=== PATIENT | female | born 1955 | race Caucasian/White ===

== ENCOUNTER 2016-09-11 07:25 | Day surgery (SDC) | payer MEDICAID, SELFPAY ==
[~2016-09-11 07:25] MED LIST: Midazolam 1 MG/ML 2 ML SDV ONE; Sodium Chloride 0.9% 10 ML Syringe FLUSH PRN; fentaNYL 100 MCG/2 ML SDV ONE
[2016-09-11] MEDS ORDERED: Dextrose 5%-0.45% NaCl 1,000 ML IV SCH (07:30)
[2016-09-11] MEDS ORDERED: fentaNYL 100 MCG/2 ML SDV IV ONE ×3 (08:44→14:48)
[2016-09-11] MEDS ORDERED: Midazolam 1 MG/ML 2 ML SDV IV ONE ×5 (08:45→14:48)
--- NOTE | 2016-09-11 09:40 | OR ---
DATE: 09/11/2016 PROCEDURE: Total colonoscopy and multiple pinch biopsies. INSTRUMENT USED: PCF-H180AL Olympus video colonoscope. PREMEDICATIONS: Fentanyl 100 mcg intravenous, Versed 3 mg intravenous. The procedure was done under pulse oximetry, BP recording, and cardiac tech. INDICATION: The patient with unexplained chronic diarrhea, not responsive to medical measures. Colonoscopic examination is done for detection of any polypoid lesions and removal, biopsies to be obtained for microscopic colitis, endoscopic hemostasis therapy if needed. DESCRIPTION OF PROCEDURE: Initial rectal exam showed perianal diffuse erythema. Rigid anoscopy was unremarkable. The colonoscope was passed with ease. Few scattered diverticula were noted in the colon more so in the distal left colon along with deformity. The scope was passed with ease up to the ileocecal area, photographs were taken of the normal-appearing cecum, identified by landmarks of appendiceal orifice and thin-lipped ileocecal folds. No bleeding was noted from any of the visualized areas at the commencement of the examination. No stricture. No vascular ectasia. No large isolated ulcerations seen. No evidence of diffuse inflammatory bowel disease in the form of friability, contact bleeding, or ulcerations. No polyp or tumor mass identified. There was quite a bit of fecal material that had to be aspirated. Probing the proximal sides of folds and flexures, using adequate distention and clearing up the stool material, withdrawal of the scope was made. Multiple pinch biopsies were taken from the normal-appearing mucosa of the midtransverse colon, middescending colon, and rectosigmoid, and sent for any histopathologic evidence of microscopic colitis. No bleeding was noted from any of the visualized areas at the completion of examination. IMPRESSION: Diverticulosis. The patient tolerated the procedure well. [facility] /[id number]
[2016-09-11 10:53] VITALS: BP 106/92
== END 2016-09-11 11:00 | disposition home or self-care (01) ==
LOC: DL.ENDO 07:25
PROVIDERS: ATTEND Internal Medicine Gastroenterology
DX: K57.30 Diverticulosis of large intestine without perforation or abscess without bleeding (principal); E66.9 Obesity, unspecified; I10 Essential (primary) hypertension; E78.5 Hyperlipidemia, unspecified; Z98.890 Other specified postprocedural states; Z88.1 Allergy status to other antibiotic agents; Z79.82 Long term (current) use of aspirin
CPT/HCPCS: 45380; J2250; J3010; J7042

== ENCOUNTER 2018-04-26 09:35 | Emergency (ER) | payer MEDICAID, SELFPAY ==
[2018-04-26 10:22] VITALS: BP 155/75
[2018-04-26] MEDS ORDERED: Sodium Chloride 0.9% 10 ML Syringe FLUSH PRN (10:29)
[2018-04-26] MEDS ORDERED: Sulfamethoxazole/Trimethoprim 800-160 MG Tab PO ONE (10:30)
[2018-04-26] MEDS ORDERED: cefTRIAXone 1 GM, Lidocaine 1% 2.1 ML IM ONE ×2 (10:30)
--- NOTE | 2018-04-26 18:04 | ER ---
SUBJECTIVE: The patient is a 62-year-old female with known venous stasis and previous cellulitis of lower extremities who comes in with the same, states she did have on the right leg sometime ago, it resolved, now she has it beginning on the anterior portion of the left lower extremity. No fevers, no trauma. She states she has cerebral palsy and is not able to get around very well. She has been elevating it. No shortness of breath. Denies any falls or trauma. PAST MEDICAL HISTORY: Significant for impaired vision, she had retinal detachment. She had adenoidectomy, cataract surgery, oral surgery for wisdom teeth, hyperlipidemia, hypertension, osteoarthritis, chronic venous stasis, chronic diarrhea, urinary incontinence, pregnancies, fibromyalgia, DJD, right rotator cuff tear repair, history of foot surgery, and heel cord lengthening twice, obesity, cerebral palsy, chronic pain syndrome, cellulitis of lower extremities and in bilateral feet, depression, aggressive hostile behavior history, chickenpox, MRSA remote history. CURRENT MEDICATIONS: Include: 1. Meloxicam 15 mg p.o. daily. 2. Triamterene-hydrochlorothiazide (37.5-25) one tablet p.o. b.i.d. 3. [place] 5-325 one tablet p.o. as directed p.r.n. 4. Tylenol p.r.n. 5. ASA 325 mg p.o. daily. 6. Naproxen 1 tablet p.o. daily. 7. Cymbalta 30 mg p.o. daily. ALLERGIIES: She is allergic to clindamycin, causes a rash and vancomycin causes a rash. SOCIAL HISTORY: She does not use tobacco. She does get around tobacco exposure when her son is around. REVIEW OF SYMPTOMS: She did fall 9 days ago but no trauma since. She has had some chills several days ago. She did have some mild nausea and vomiting, it was nonbloody, this has been since resolved. No nausea and vomiting now and no diarrhea now. She has redness to the anterior lower extremity as discussed in HPI. No chest pain or shortness of breath. No fevers. OBJECTIVE: Vital Signs: She is afebrile, heart rate 88, blood pressure 155/75, respiratory rate 16, oxygen is 98% on room air. General: The patient is very talkative, pleasant, fairly good historian. No respiratory distress. Extremities: Focused examination of lower extremities shows the right lower extremity to be nontender. No swelling; is at baseline. She has good pulses. The left lower extremity pretibially however is red and inflamed. The cellulitis that is obvious there does not go around circumferentially, and there is no posterior or medial or lateral cellulitis or tenderness, it is all anterior and pretibial. It does not involve the knee or the thigh and does not involve the ankle. She does have good pedal pulses. She is able to move her foot around. There is no compartment syndrome. There is no drainage, weeping, open areas. No signs of any trauma. There is no fluctuance or induration. It is warm and somewhat red. LAB/STUDIES: Blood culture was obtained. Her white count was normal at 5.8, she had no anemia, platelets are normal. Differential not remarkable. EMERGENCY ROOM COURSE: She was given an injection of Rocephin 1 g and also a tablet of Septra DS once cultures were obtained. ASSESSMENT: Left lower extremity cellulitis with history of same. PLAN: Elevate leg as much as possible. Continue with current meds, carefully observe and demarc the area that is cellulitic to see if it is getting worse or better. Received prescription for Bactrim DS 1 p.o. b.i.d. for 10 days. Plan to see PCP early to mid week this coming week in clinic or return for emergent issues. [facility] /[id number]
== END 2018-04-26 11:25 | disposition home or self-care (01) ==
LOC: DL.ED 09:35
DX: L03.116 Cellulitis of left lower limb (principal); I10 Essential (primary) hypertension; Z79.899 Other long term (current) drug therapy
CPT/HCPCS: 36415; 85025; 87040; 96372; 99283; A9270; J0696; J2001

== ENCOUNTER 2021-01-11 17:00 | Emergency (ER) | payer MEDICARE, MEDICAID ==
--- NOTE | 2021-01-11 17:15 | EDM.PDOC ---
<Jadon aBrth Jann - Last Filed: 01/11/21 19:37> ED HPI GENERAL MEDICAL PROBLEM - General Chief Complaint: General Stated Complaint: AMBULANCE Time Seen by Provider: 01/11/21 17:11 Source of Information: Reports: Patient History Limitations: Reports: No Limitations - History of Present Illness INITIAL COMMENTS - FREE TEXT/NARRATIVE: 65 y/o F c/o sob, fatigue for 2 weeks. Pt reports she was exposed to COVID and so she locked herself in her apartment for the last 2 weeks . She reports not being able to eat well or hold down food or water for several days. She denies fever, cough, chills, drugs, cp, db, diabetes, abd pn, ext pain, diarrhea. - Related Data Allergies Allergy/AdvReac Type Severity Reaction Status Date / Time clindamycin Allergy Rash Verified 01/11/21 17:01 lincomycin Allergy Rash Verified 01/11/21 17:01 Home Meds: Home Meds Meloxicam [Mobic] 15 mg PO DAILY 01/26/13 [History] Triamterene/Hydrochlorothiazid [Triamterene-HCTZ 37.5-25 MG] 1 tab PO DAILY 01/26/13 [History] Hydrocodone/Acetaminophen [[place] 5-325] 1 tab PO ASDIRECTED PRN 01/27/13 [History] Acetaminophen 1 - 2 tab PO ASDIRECTED 09/10/16 [History] Aspirin/Calcium Carbonate/Mag [Aspirin Buffered 325 mg Tab] 1 tab PO DAILY 09/10/16 [History] Naproxen Sodium [Aleve] 1 tab PO DAILY 09/10/16 [History] DULoxetine [Cymbalta] 30 mg PO DAILY 04/26/18 [History] Past Medical History HEENT History: Reports: Impaired Vision, Retinal Detachment, Other (See Below) Other HEENT History: HX OF RETINAL DETACHMENT RIGHT EYE Cardiovascular History: Reports: High Cholesterol, Hypertension, Other (See Below) Other Cardiovascular History: EDEMA Respiratory History: Reports: None Gastrointestinal History: Reports: Chronic Diarrhea Genitourinary History: Reports: Urinary Incontinence 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 HX OF RIGHT ROTATOR CUFF TEAR Neurological History: Reports: Cerebral Palsy, Other (See Below) Other Neuro History: CHRONIC PAIN SYNDROME Psychiatric History: Reports: Aggressive/Hostile Behaviors, Depression Endocrine/Metabolic History: Reports: Obesity/BMI 30+ Hematologic History: Reports: None Immunologic History: Reports: None Oncologic (Cancer) History: Reports: None Dermatologic History: Reports: Cellulitis, Other (See Below) Other Dermatologic History: Dry skin. HX OF CELLILITUS IN BILAT FEET - Infectious Disease History Infectious Disease History: Reports: Chicken Pox, MRSA - Past Surgical History Head Surgeries/Procedures: Reports: None HEENT Surgical History: Reports: Adenoidectomy, Cataract Surgery, Oral Surgery, Other (See Below) Other HEENT Surgeries/Procedures: wisdom teeth Cardiovascular Surgical History: Reports: None Respiratory Surgical History: Reports: None GI Surgical History: Reports: None Endocrine Surgical History: Reports: None Musculoskeletal Surgical History: Reports: Shoulder Surgery, Other (See Below) Other Musculoskeletal Surgeries/Procedures:: HX OF FOOT SURGERY FOOT HEEL CORD LENGTHENING X2 RIGHT X1 LEFT Dermatological Surgical History: Reports: None Social & Family History - Family History Family Medical History: No Pertinent Family History - Caffeine Use Caffeine Use: Reports: Coffee Other Caffeine Use: AVERAGE OF 2-3 CUPS DAILY ED ROS GENERAL - Review of Systems Review Of Systems: See Below ED EXAM, GENERAL - Physical Exam Exam: See Below Exam Limited By: No Limitations General Appearance: Alert, Moderate Distress, Other (confused knows person and place doesnt know the date) Eye Exam: Bilateral Eye: PERRL Ears: Normal External Exam, Normal Canal, Hearing Grossly Normal, Normal TMs Nose: Normal Inspection, Normal Mucosa, No Blood Throat/Mouth: Other (dry oropharynx, tongue dry and furrowed) Head: Atraumatic, Normocephalic Neck: Supple, Non-Tender Respiratory/Chest: Other (tachypenic clear breath sounds.) Cardiovascular: Normal Peripheral Pulses, Regular Rate, Rhythm GI/Abdominal: Soft, Non-Tender (Female) Exam: Deferred Rectal (Female) Exam: Deferred Back Exam: Normal Inspection, Full Range of Motion, NT Extremities: Normal Inspection, Normal Range of Motion, Non-Tender, Normal Capillary Refill, No Pedal Edema Neurological: Alert, Oriented Psychiatric: Anxious Skin Exam: Warm, Dry, Intact #1 Interpretation EKG Date: 01/11/21 Time: 17:07 Rhythm: Other (sinus) [place]: Normal P-Wave: Present QRS: Normal ST-T: Other (biphasic t waves v1-v3, T wave inversions inferior leads. Unknown if changes are new or old.) Course - Re-Assessments/Exams Free Text/Narrative Re-Assessment/Exam: 01/11/21 20:[address] spoke with a dr. Dupree at [facility] regarding the pts condition. I explained her hx, workup, COVID and deteriorating condition. He accepted her fro transfer to [facility] and asked that the pt be intubated prior to transfer. The pt was anticoagulated because of her COVID and risk for PE. A CT PE study could not be completed due to the pts elevates creatinine. I intubated the pt with a 7.5 tube at 23 at the teeth using the glide scope. A delayed sequence intubation was done using ketamine and versed so the pt would preserve her resp drive. Prior to intubation the pt was breathing at 60 times a minute and was expressing fatigue. After intubation the pt was paralyzed with succinylcholine. Intubation went well no complications. 01/11/21 21:07 Departure - Departure Time of Disposition: 21:15 Disposition: 20 Condition: Critical Clinical Impression: COVID-19, Pneumonia, Hypokalemia, Respiratory acidosis, Elevated troponin, GI bleed - Discharge Information *PRESCRIPTION DRUG MONITORING PROGRAM REVIEWED*: Not Applicable *COPY OF PRESCRIPTION DRUG MONITORING REPORT IN PATIENT ALEX: Not Applicable Referrals: PCP,None [Primary Care Provider] - Forms: ED Department Discharge, Interfacility Transfer LAURA <Loree Henry - Last Filed: 01/17/21 07:19> Course - Vital Signs Last Recorded V/S: Last Vital Signs Temp 96.8 F L 01/11/21 17:02 Pulse 88 01/11/21 18:14 Resp 20 01/11/21 18:14 BP 95/59 L 01/11/21 18:14 Pulse Ox 96 01/11/21 18:14 - Orders/Labs/Meds Labs: Laboratory Tests 01/11/21 01/11/21 01/11/21 Range/Units 16:42 17:20 17:20 WBC 16.3 H (5.0-10.0) 10^3/uL RBC 4.74 (4.2-5.4) 10^6/uL Hgb 15.0 (12.0-16.0) g/dL Hct 43.5 (37.0-47.0) % MCV 91.8 (80-100) fL MCH 31.6 (27.0-34.0) pg MCHC 34.5 (33.0-35.0) g/dL Plt Count 195 D (150-450) 10^3/uL Neut % (Auto) 87.6 H (42.2-75.2) % Lymph % (Auto) 6.6 L (20.5-50.1) % [place] % (Auto) 5.6 (2-8) % Eos % (Auto) 0.1 L (1.0-3.0) % Baso % (Auto) 0.1 (0.0-1.0) % Add Manual Diff Yes Neutrophils % (Manual) 90 H (42-75) % Lymphocytes % (Manual) 5 L (20-50) % Monocytes % (Manual) 5 (2-8) % ABG pH ABG pCO2 ABG pO2 ABG HCO3 ABG O2 Saturation ABG Base Excess Davey Test VBG pH (7.31-7.41) VBG pCO2 (41-51) mmHg VBG pO2 (35-42) mmHg VBG HCO3 (19-25) mmol/l VBG O2 Saturation (60-80) % VBG Base Excess ((-2)-(+3)) mmol/l O2 Delivery Device Oxygen Flow Rate Sodium 139 (136-145) mmol/L Potassium 2.6 L (3.5-5.1) mmol/L Chloride 98 (98-107) mmol/L Carbon Dioxide 25 (21-32) mmol/L Anion Gap 18.6 H (7-13) mEq/L BUN 54 H (7-18) mg/dL Creatinine 1.82 H (0.55-1.02) mg/dL Est Cr Clr Drug Dosing 25.90 mL/min Estimated GFR (MDRD) 28 BUN/Creatinine Ratio 29.7 (No establ ref range) Glucose 149 H (70-99) mg/dL POC Glucose (70-99) mg/dL Lactic Acid (0.4-2.0) mmol/L Calcium 8.0 L (8.5-10.1) mg/dL Phosphorus 2.9 (2.6-4.7) mg/dL Magnesium 2.3 (1.8-2.4) mg/dL Total Bilirubin 0.9 (0.2-1.0) mg/dL AST 39 H (15-37) U/L ALT 41 (14-59) U/L Alkaline Phosphatase 73 (46-116) U/L Troponin I High Sens (<=51) pg/mL C-Reactive Protein > 36.0 H (0.0-0.9) mg/dL Total Protein 7.0 (6.4-8.2) g/dL Albumin 1.9 L (3.4-5.0) g/dL Globulin 5.1 Albumin/Globulin Ratio 0.37 Amylase 31 (25-115) U/L Lipase 107 (73-393) U/L TSH, Ultra Sensitive 0.33 L (0.36-3.74) uIU/mL SARS-CoV-2 RNA (MAHSA) Positive H (NEGATIVE) 01/11/21 01/11/21 01/11/21 Range/Units 17:20 17:20 17:29 WBC (5.0-10.0) 10^3/uL RBC (4.2-5.4) 10^6/uL Hgb (12.0-16.0) g/dL Hct (37.0-47.0) % MCV (80-100) fL MCH (27.0-34.0) pg MCHC (33.0-35.0) g/dL Plt Count (150-450) 10^3/uL Neut % (Auto) (42.2-75.2) % Lymph % (Auto) (20.5-50.1) % [place] % (Auto) (2-8) % Eos % (Auto) (1.0-3.0) % Baso % (Auto) (0.0-1.0) % Add Manual Diff Neutrophils % (Manual) (42-75) % Lymphocytes % (Manual) (20-50) % Monocytes % (Manual) (2-8) % ABG pH Cancelled ABG pCO2 Cancelled ABG pO2 Cancelled ABG HCO3 Cancelled ABG O2 Saturation Cancelled ABG Base Excess Cancelled Davey Test Cancelled VBG pH (7.31-7.41) VBG pCO2 (41-51) mmHg VBG pO2 (35-42) mmHg VBG HCO3 (19-25) mmol/l VBG O2 Saturation (60-80) % VBG Base Excess ((-2)-(+3)) mmol/l O2 Delivery Device Cancelled Oxygen Flow Rate Cancelled Sodium (136-145) mmol/L Potassium (3.5-5.1) mmol/L Chloride (98-107) mmol/L Carbon Dioxide (21-32) mmol/L Anion Gap (7-13) mEq/L BUN (7-18) mg/dL Creatinine (0.55-1.02) mg/dL Est Cr Clr Drug Dosing mL/min Estimated GFR (MDRD) BUN/Creatinine Ratio (No establ ref range) Glucose (70-99) mg/dL POC Glucose (70-99) mg/dL Lactic Acid 2.5 H* (0.4-2.0) mmol/L Calcium (8.5-10.1) mg/dL Phosphorus (2.6-4.7) mg/dL Magnesium (1.8-2.4) mg/dL Total Bilirubin (0.2-1.0) mg/dL AST (15-37) U/L ALT (14-59) U/L Alkaline Phosphatase (46-116) U/L Troponin I High Sens 530 H* (<=51) pg/mL C-Reactive Protein (0.0-0.9) mg/dL Total Protein (6.4-8.2) g/dL Albumin (3.4-5.0) g/dL Globulin Albumin/Globulin Ratio Amylase (25-115) U/L Lipase (73-393) U/L TSH, Ultra Sensitive (0.36-3.74) uIU/mL SARS-CoV-2 RNA (MAHSA) (NEGATIVE) 01/11/21 01/11/21 01/12/21 Range/Units 17:46 19:31 00:49 WBC (5.0-10.0) 10^3/uL RBC (4.2-5.4) 10^6/uL Hgb (12.0-16.0) g/dL Hct (37.0-47.0) % MCV (80-100) fL MCH (27.0-34.0) pg MCHC (33.0-35.0) g/dL Plt Count (150-450) 10^3/uL Neut % (Auto) (42.2-75.2) % Lymph % (Auto) (20.5-50.1) % [place] % (Auto) (2-8) % Eos % (Auto) (1.0-3.0) % Baso % (Auto) (0.0-1.0) % Add Manual Diff Neutrophils % (Manual) (42-75) % Lymphocytes % (Manual) (20-50) % Monocytes % (Manual) (2-8) % ABG pH Cancelled ABG pCO2 Cancelled ABG pO2 Cancelled ABG HCO3 Cancelled ABG O2 Saturation Cancelled ABG Base Excess Cancelled Davey Test Cancelled VBG pH 7.46 H 6.89 L* (7.31-7.41) VBG pCO2 36 L 109 H* (41-51) mmHg VBG pO2 23 L 57 H (35-42) mmHg VBG HCO3 25 20 (19-25) mmol/l VBG O2 Saturation 19.9 L 61.1 (60-80) % VBG Base Excess 2.0 -18.2 L ((-2)-(+3)) mmol/l O2 Delivery Device Nasal cannula Ventilator Oxygen Flow Rate Sodium (136-145) mmol/L Potassium (3.5-5.1) mmol/L Chloride (98-107) mmol/L Carbon Dioxide (21-32) mmol/L Anion Gap (7-13) mEq/L BUN (7-18) mg/dL Creatinine (0.55-1.02) mg/dL Est Cr Clr Drug Dosing mL/min Estimated GFR (MDRD) BUN/Creatinine Ratio (No establ ref range) Glucose (70-99) mg/dL POC Glucose 119 H (70-99) mg/dL Lactic Acid (0.4-2.0) mmol/L Calcium (8.5-10.1) mg/dL Phosphorus (2.6-4.7) mg/dL Magnesium (1.8-2.4) mg/dL Total Bilirubin (0.2-1.0) mg/dL AST (15-37) U/L ALT (14-59) U/L Alkaline Phosphatase (46-116) U/L Troponin I High Sens (<=51) pg/mL C-Reactive Protein (0.0-0.9) mg/dL Total Protein (6.4-8.2) g/dL Albumin (3.4-5.0) g/dL Globulin Albumin/Globulin Ratio Amylase (25-115) U/L Lipase (73-393) U/L TSH, Ultra Sensitive (0.36-3.74) uIU/mL SARS-CoV-2 RNA (MAHSA) (NEGATIVE) 01/12/21 01/12/21 Range/Units 02:20 02:20 WBC 26.5 H* (5.0-10.0) 10^3/uL RBC 4.69 (4.2-5.4) 10^6/uL Hgb 14.8 (12.0-16.0) g/dL Hct 46.0 (37.0-47.0) % MCV 98.1 D (80-100) fL MCH 31.6 (27.0-34.0) pg MCHC 32.2 L (33.0-35.0) g/dL Plt Count 190 (150-450) 10^3/uL Neut % (Auto) 85.3 H (42.2-75.2) % Lymph % (Auto) 10.8 L (20.5-50.1) % [place] % (Auto) 3.7 (2-8) % Eos % (Auto) 0.1 L (1.0-3.0) % Baso % (Auto) 0.1 (0.0-1.0) % Add Manual Diff Neutrophils % (Manual) (42-75) % Lymphocytes % (Manual) (20-50) % Monocytes % (Manual) (2-8) % ABG pH ABG pCO2 ABG pO2 ABG HCO3 ABG O2 Saturation ABG Base Excess Davey Test VBG pH (7.31-7.41) VBG pCO2 (41-51) mmHg VBG pO2 (35-42) mmHg VBG HCO3 (19-25) mmol/l VBG O2 Saturation (60-80) % VBG Base Excess ((-2)-(+3)) mmol/l O2 Delivery Device Oxygen Flow Rate Sodium 143 (136-145) mmol/L Potassium 3.3 L (3.5-5.1) mmol/L Chloride 107 (98-107) mmol/L Carbon Dioxide 20 L (21-32) mmol/L Anion Gap 19.3 H (7-13) mEq/L BUN 49 H (7-18) mg/dL Creatinine 2.06 H (0.55-1.02) mg/dL Est Cr Clr Drug Dosing 22.88 mL/min Estimated GFR (MDRD) 24 BUN/Creatinine Ratio 23.8 (No establ ref range) Glucose 308 H (70-99) mg/dL POC Glucose (70-99) mg/dL Lactic Acid (0.4-2.0) mmol/L Calcium 7.3 L (8.5-10.1) mg/dL Phosphorus (2.6-4.7) mg/dL Magnesium (1.8-2.4) mg/dL Total Bilirubin 1.0 (0.2-1.0) mg/dL AST 70 H (15-37) U/L ALT 42 (14-59) U/L Alkaline Phosphatase 91 (46-116) U/L Troponin I High Sens 647 H* (<=51) pg/mL C-Reactive Protein (0.0-0.9) mg/dL Total Protein 6.1 L (6.4-8.2) g/dL Albumin 1.6 L (3.4-5.0) g/dL Globulin 4.5 Albumin/Globulin Ratio 0.36 Amylase (25-115) U/L Lipase (73-393) U/L TSH, Ultra Sensitive (0.36-3.74) uIU/mL SARS-CoV-2 RNA (MAHSA) (NEGATIVE) Meds: Medications Discontinued Medications Generic Name Dose Route Start Last Admin Trade Name Freq PRN Reason Stop Dose Admin Diphenhydramine HCl 25 mg 01/11/21 21:33 Diphenhydramine 50 Mg/Ml Sdv IVPUSH Q6H PRN Itching Diphenhydramine HCl 25 mg 01/11/21 21:33 Diphenhydramine 25 Mg Tab PO Q6H PRN Itching Fentanyl Citrate Confirm 01/11/21 21:21 Fentanyl Citrate/Pf 1,500 Mcg/30 Ml Wallpaper Embosser Helper Vial Administered 01/11/21 21:22 Dose 1,500 mcg .ROUTE .STK-MED ONE Fentanyl Citrate 0 mcg 01/11/21 21:45 Fentanyl Citrate/Pf 1,500 Mcg/30 Ml Wallpaper Embosser Helper Vial IV ASDIRECTED DEJAN Protocol Heparin Sodium (Porcine) 5,000 units 01/11/21 19:24 01/11/21 19:51 Heparin Sodium 5,000 Units/Ml Vial IVPUSH 01/11/21 19:25 5,000 units .BOLUS ONE Administration Protocol Hydrocortisone Sodium Succinate 100 mg 01/12/21 00:48 01/12/21 00:52 Hydrocortisone Sodium Succinate 100 Mg/2 Ml Sdv IVPUSH 01/12/21 00:49 100 mg ONETIME ONE Administration Sodium Chloride 500 mls @ 999 mls/hr 01/11/21 17:30 01/11/21 21:23 Normal Saline IV 999 mls/hr .BOLUS DEJAN Administration Sodium Chloride 1,000 mls @ 999 mls/hr 01/11/21 18:15 01/11/21 18:15 Normal Saline IV 01/15/21 18:15 999 mls/hr ASDIRECTED DEJAN Administration Potassium Chloride 20 meq/ 100 mls @ 50 mls/hr 01/11/21 18:16 01/11/21 18:27 Premix IV 01/11/21 20:15 50 mls/hr ONETIME ONE Administration Sodium Chloride 1,000 mls @ 125 mls/hr 01/11/21 18:30 01/11/21 18:28 Normal Saline IV 125 mls/hr ASDIRECTED DEJAN Administration Heparin Sodium/Sodium Chloride 25,000 units in 500 mls @ 29.393 mls/hr 01/11/21 19:30 01/11/21 20:00 Heparin 25,000 Units In 1/2 Ns 500 Ml IV 16 units/kg/hr TITRATE DEJAN 26.127 mls/hr Administration Protocol 18 UNITS/KG/HR Norepinephrine Bitartrate 4 mg 250 mls @ 22.5 mls/hr 01/11/21 20:00 01/11/21 21:30 / Dextrose/Water IV 16 mcg/min TITRATE DEJAN 60 mls/hr Titration Protocol 6 MCG/MIN Levofloxacin/Dextrose Confirm 01/11/21 20:08 01/11/21 21:08 Levaquin In D5w 500 Mg/100 Ml Administered 01/11/21 20:09 100 mls/hr Dose Administration 100 mls @ as directed IV .STK-MED ONE Sodium Chloride 500 mls @ 999 mls/hr 01/11/21 21:20 Normal Saline IV .BOLUS DEJAN Norepinephrine Bitartrate 4 mg 250 mls @ 7.5 mls/hr 01/12/21 02:45 / Dextrose/Water IV TITRATE DEJAN Protocol 2 MCG/MIN Ketamine HCl 500 mg/ Sodium 510 mls @ as directed 01/11/21 20:39 Chloride IV 01/11/21 20:40 .STK-MED ONE Ketamine HCl 250 mg 01/11/21 20:39 Ketamine 500 Mg/10 Ml Mdv IV 01/11/21 20:40 .STK-MED ONE Levofloxacin 500 mg 01/11/21 19:39 01/11/21 20:15 Levofloxacin 500 Mg Tab PO 01/11/21 19:40 Not Given ONETIME ONE Methylprednisolone Sodium Succinate 125 mg 01/11/21 19:38 01/11/21 20:24 Methylprednisolone Sodium Succinate 125 Mg/2 Ml Sdv IVPUSH 01/11/21 19:39 125 mg ONETIME ONE Administration Midazolam HCl Confirm 01/11/21 20:18 01/11/21 20:28 Midazolam 1 Mg/Ml 2 Ml Sdv Administered 01/11/21 20:19 4 mg Dose Administration 4 mg .ROUTE .STK-MED ONE Midazolam HCl 5 mg 01/11/21 20:39 Midazolam 5 Mg/Ml 10 Ml Mdv IV 01/11/21 20:40 .STK-MED ONE Naloxone HCl 0.04 mg 01/11/21 21:33 Naloxone 2 Mg/2 Ml Syringe IVPUSH Q3M PRN Respiratory Depression Norepinephrine Bitartrate Confirm 01/11/21 19:58 01/11/21 20:29 Norepinephrine 4 Mg/4 Ml Sdv Administered 01/11/21 19:59 Not Given Dose 4 mg .ROUTE .STK-MED ONE Ondansetron HCl 4 mg 01/11/21 21:33 Ondansetron 4 Mg/2 Ml Sdv IVPUSH Q6H PRN Nausea/Vomiting Potassium Chloride 40 meq 01/11/21 18:15 01/11/21 18:20 Potassium Chloride 10 Meq Tab.Er PO 01/11/21 18:16 40 meq ONETIME ONE Administration Rocuronium [place] 80 mg 01/11/21 20:39 Rocuronium 100 Mg/10 Ml Mdv IV 01/11/21 20:40 .STK-MED ONE Succinylcholine Chloride 100 mg 01/11/21 20:39 Succinylcholine 200 Mg/10 Ml Mdv IV 01/11/21 20:40 .STK-MED ONE - Re-Assessments/Exams Free Text/Narrative Re-Assessment/Exam: 2320 Care assumed at shift change. Status declining unable to maintain adequate BP with addition IVF and pressors. TC Dr Dupree. Reynaldo recommend ABG, additional IVF Guardian Flight here. Solucortef and Sodium bicarb recommended by medical control. Family contacted. Patient to unstable for transport. Son Oswaldo and Daughter Evette requested to come. Status and prognosis discussed. Clergy here for last rights. 0230 Daughter requesting , NO CPR. Lj dark blood draining from NG O250, rhythm changes, bradycardia, agonal, V-tach. Asystole. . Patient absence of HR a 0256 .Ventilator discontinued. No spontaneous respiration. Family at bedside. 01/12/21 03:57 01/17/21 07:17 Departure - Departure Time of Disposition: 03:02 Preliminary Cause of *Q: Cardiac Arrest
[2021-01-11] MEDS: Sodium Chloride 0.9% 500 ML IV SCH ×2 (17:36→21:23)
[2021-01-11 18:08] LABS: ANION GAP 18.6 mEq/L (7-13); CHLORIDE,CL 98 mmol/L (98-107); SODIUM,NA 139 mmol/L (136-145)
--- NOTE | 2021-01-11 18:10 | CR ---
PROCEDURE INFORMATION: Exam: XR Chest Exam date and time: 01/11/2021 5:38 PM Age: 65 years old Clinical indication: Shortness of breath; Additional info: SOB TECHNIQUE: Imaging protocol: XR of the chest. Views: 1 view. Total images: 1 COMPARISON: CR Chest 1V Frontal 06/11/2015 10:51 AM FINDINGS: Lungs: Question mild central vascular congestion. Multifocal bilateral alveolar opacities in the lung bases and right mid to upper lung field concerning for multifocal pneumonia. Pleural spaces: No pleural effusion. No pneumothorax. Heart/Mediastinum: Heart size within normal limits for portable AP technique. No tracheal/mediastinal shift. Bones/joints: Multiple low-density lesions in the right humeral head and proximal metaphysis which are new since 2016 demonstrating thin sclerotic peripheral margins, with a few radiolucent foci in the left humeral greater tuberosity. A few suspected articular calcifications in the left inferior axillary recess and anterior joint space. This may represent progressive changes of chronic arthropathy such as rheumatoid arthritis, correlate clinically. IMPRESSION: 1. Multifocal bilateral alveolar opacities concerning for multifocal pneumonia. 2. Chronic appearing changes in the proximal humeri which may indicate progression of chronic arthropathy such as rheumatoid arthritis, correlate clinically.
[2021-01-11 18:14] VITALS: BP 95/59; PULSE 88
[2021-01-11] MEDS ORDERED: Potassium Chloride 10 MEQ Tab.ER PO ONE (18:15)
[2021-01-11] MEDS ORDERED: Sodium Chloride 0.9% 1,000 ML IV SCH ×2 (18:15→18:30)
[2021-01-11] MEDS ORDERED: Potassium Chloride 20 MEQ in Premix Bag 1 BAG IV ONE (18:16)
[2021-01-11] MEDS ORDERED: Heparin Sodium 5,000 Units/ML Vial IVPUSH ONE (19:24)
[2021-01-11] MEDS ORDERED: Heparin Sodium/0.45% NaCl 25,000 UNITS/500 ML BAG IV SCH (19:30)
[2021-01-11] MEDS ORDERED: methylPREDNISolone Sodium Succinate 125 MG/2 ML SDV IVPUSH ONE (19:38)
[2021-01-11] MEDS ORDERED: Levofloxacin 500 MG Tab PO ONE (19:39)
[2021-01-11] MEDS ORDERED: Norepinephrine 4 MG/4 ML SDV ONE (19:58)
[2021-01-11 19:59] LABS: O2 DELIVERY DEVICE NASAL CANNULA; O2 SATURATION VENOUS 19.9 % (60-80); PCO2 VENOUS 36 mmHg (41-51); PH,VENOUS 7.46 (7.31-7.41); PO2 VENOUS 23 mmHg (35-42)
[2021-01-11 20:00] LABS: BICARBONATE,VENOUS 25 mmol/l (19-25)
[2021-01-11] MEDS ORDERED: Norepinephrine 4 MG in Dextrose 5% in Water 246 ML IV SCH ×2 (20:00)
[2021-01-11] MEDS ORDERED: Levofloxacin/Dextrose 5%-Water 100 ML IV ONE (20:08)
[2021-01-11] MEDS ORDERED: Midazolam 1 MG/ML 2 ML SDV ONE (20:18)
[2021-01-11] MEDS ORDERED: Ketamine 500 MG in Sodium Chloride 0.9% 500 ML IV ONE (20:39)
[2021-01-11] MEDS ORDERED: Succinylcholine 200 MG/10 ML MDV IV ONE (20:39)
[2021-01-11] MEDS ORDERED: Midazolam 5 MG/ML 10 ML MDV IV ONE (20:39)
[2021-01-11] MEDS ORDERED: Ketamine 500 mg/10 ML MDV IV ONE (20:39)
[2021-01-11] MEDS ORDERED: Rocuronium 100 MG/10 ML MDV IV ONE (20:39)
[2021-01-11] MEDS ORDERED: Sodium Chloride 0.9% 500 ML IV SCH (21:20)
--- NOTE | 2021-01-11 21:20 | CR ---
PROCEDURE INFORMATION: Exam: XR Chest Exam date and time: 01/11/2021 8:51 PM Age: 65 years old Clinical indication: Device placement; Ett placement (vent status); Additional info: Post intubation TECHNIQUE: Imaging protocol: XR of the chest. Views: 1 view. Total images: 1 COMPARISON: CR Chest 1V Frontal 01/11/2021 5:38 PM FINDINGS: Tubes, catheters and devices: Endotracheal tube tip 2.8 cm above the layla. Nasogastric tube tip in the gastric fundus. Lungs: Question mild central vascular congestion. Multifocal bilateral alveolar opacities concerning for multifocal pneumonia are unchanged. Pleural spaces: No pleural effusion. No pneumothorax. Heart/Mediastinum: Heart size within normal limits for portable AP technique. No tracheal/mediastinal shift. Bones/joints: No acute osseous abnormalities are identified. Osteopenia. IMPRESSION: 1. Endotracheal tube tip 2.8 cm above the layla. Nasogastric tube tip in the gastric fundus. 2. Bilateral alveolar opacities consistent with multifocal pneumonia unchanged.
[2021-01-11] MEDS ORDERED: fentaNYL Citrate/PF 1,500 MCG/30 ML PCA Vial ONE (21:21)
[2021-01-11] MEDS ORDERED: diphenhydrAMINE 50 MG/ML SDV IVPUSH PRN (21:33)
[2021-01-11] MEDS ORDERED: Ondansetron 4 MG/2 ML SDV IVPUSH PRN (21:33)
[2021-01-11] MEDS ORDERED: Naloxone 2 MG/2 ML Syringe IVPUSH PRN (21:33)
[2021-01-11] MEDS ORDERED: diphenhydrAMINE 25 MG Tab PO PRN (21:33)
[2021-01-11] MEDS ORDERED: fentaNYL Citrate/PF 1,500 MCG/30 ML PCA Vial IV SCH (21:45)
[2021-01-12] MEDS ORDERED: Hydrocortisone Sodium Succinate 100 MG/2 ML SDV IVPUSH ONE (00:48)
[2021-01-12 02:28] LABS: BASE EXCESS VENOUS -18.2 mmol/l ((-2)-(+3)); BICARBONATE,VENOUS 20 mmol/l (19-25); O2 DELIVERY DEVICE VENTILATOR; O2 SATURATION VENOUS 61.1 % (60-80); PO2 VENOUS 57 mmHg (35-42)
[2021-01-12 02:29] LABS: PCO2 VENOUS 109 mmHg (41-51); PH,VENOUS 6.89 (7.31-7.41)
[2021-01-12] MEDS ORDERED: Norepinephrine 4 MG in Dextrose 5% in Water 246 ML IV SCH ×2 (02:45)
[2021-01-12 02:53] LABS: ANION GAP 19.3 mEq/L (7-13)
== END 2021-01-12 04:40 | disposition expired ==
LOC: DL.ED 17:00
DX: U07.1 COVID-19 (principal); J12.82 Pneumonia due to coronavirus disease 2019; K92.2 Gastrointestinal hemorrhage, unspecified; E87.2 Acidosis; E87.6 Hypokalemia; R79.89 Other specified abnormal findings of blood chemistry; I10 Essential (primary) hypertension; E66.9 Obesity, unspecified; Z68.30 Body mass index [BMI] 30.0-30.9, adult; Z88.1 Allergy status to other antibiotic agents; Z79.82 Long term (current) use of aspirin; Z79.899 Other long term (current) drug therapy
CPT/HCPCS: 31500; 36415; 36600; 43752; 51702; 71045; 80053; 82150; 82803; 82947; 83605; 83690; 83735; 84100; 84443; 84484; 85025; 86140; 87040; 93005; 96365; 96366; 96367; 96368; 96375; 96376; 99285; A9270; J0330; J1644; J1720; J1956; J2250; J2930; J3010; J3480; J7030; J7040; J7060; U0002